=== PATIENT | female | born 1945 | race Caucasian/White ===

== ENCOUNTER 2020-10-02 13:18 | Emergency (ER) | payer MEDICARE, BC ==
[~2020-10-02] VITALS: Ht 165.1 cm; Wt 84.9 kg
[~2020-10-02 13:18] MED LIST: ACET-1008 PO; ASCO-261 PO; CALC-336 PO; CALC-793 PO; CRAN200C PO; LEVO137T24 PO; LIDOcaine 1% W/epiNEPHrine 1:200,000 10ml vial ONE; MAGN500C16 PO; MULT-227 PO; SPIR1TAB4 PO
[2020-10-02 13:38] VITALS: BP 172/76
[2020-10-02] MEDS ORDERED: TETanus/Pertussis (Acell)/Diphther VAC/PF (Tdap-Adult) 0.5ml syringe IMVAC ONE (14:15)
--- NOTE | 2020-10-02 15:25 | NUR ---
CALL (LILY), WHEN READY FOR DISCHARGE SO HE CAN PICK UP. #[phone]
== END 2020-10-02 16:26 | disposition home or self-care (01) ==
LOC: ER 13:19
DX: S01.21XA Laceration without foreign body of nose, initial encounter (principal); M25.561 Pain in right knee; I10 Essential (primary) hypertension; Z88.2 Allergy status to sulfonamides; Z88.8 Allergy status to other drugs, medicaments and biological substances; Z79.899 Other long term (current) drug therapy; Z91.018 Allergy to other foods; W22.8XXA Striking against or struck by other objects, initial encounter; Y93.89 Activity, other specified; Y92.89 Other specified places as the place of occurrence of the external cause; Y99.8 Other external cause status
CPT/HCPCS: 12011; 70150; 70450; 90471; 90715; 99284

== ENCOUNTER 2023-08-13 09:53 | Day surgery (SDC) | payer MEDICARE, BC ==
[2023-08-05 16:22] LABS: BASOPHILS # (AUTO) 0.1 X10'3 (0-0.2); EOSINOPHILS # (AUTO) 0.2 X10'3 (0-0.9); EOSINOPHILS % (AUTO) 2.2 % (0-6); LYMPHOCYTES # (AUTO) 2.3 X10'3 (1.1-4.8); LYMPHOCYTES % (AUTO) 30.3 % (21-51); MEAN CORPUSCULAR HEMOGLOBIN 30.5 PG (27.0-31.0); MEAN CORPUSCULAR HGB CONC 33.5 g/dL (33.0-36.5); MEAN CORPUSCULAR VOLUME 91.2 FL (78-98); MEAN PLATELET VOLUME 9.2 FL (7.4-10.4); MONOCYTES # (AUTO) 0.5 X10'3 (0-0.9); NEUTROPHILS # (AUTO) 4.6 X10'3 (1.8-7.7); NEUTROPHILS % (AUTO) 59.5 % (42-75); PRE OP HEMATOCRIT 43.3 % (35.0-45.0); PRE OP HEMOGLOBIN 14.5 g/dL (12.0-16.0); PRE OP PLATELET COUNT 210 X10'3 (140-440); PRE OP WHITE BLOOD COUNT 7.7 10'3 (4.8-10.8); RED BLOOD COUNT 4.75 X10'6 (4.20-5.60); RED CELL DISTRIBUTION WIDTH 14.2 % (11.5-14.5)
[2023-08-05 16:35] LABS: ALBUMIN 3.6 G/DL (3.4-5.0); ALKALINE PHOSPHATASE 156 IU/L (46-116); BLOOD UREA NITROGEN 15 MG/DL (7-18); CALCIUM 9.1 MG/DL (8.5-10.1); CHLORIDE 103 MMOL/L (99-107); CREATININE 0.75 MG/DL (0.40-0.90); PRE OP ALT 53 U/L (30-65); PRE OP ANION GAP 5 (8-16); PRE OP AST 21 U/L (10-37); PRE OP BILIRUB, TOTAL 0.6 MG/DL (0.0-1.0); PRE OP GLUCOSE 161 MG/DL (70-104); PRE OP SODIUM 137 MMOL/L (135-145); TOTAL CARBON DIOXIDE 28.7 MMOL/L (24-32); TOTAL PROTEIN 7.1 G/DL (6.4-8.2); eGFR 75 ML/MIN
[2023-08-05 16:37] LABS: PRE OP POTASSIUM 3.2 MMOL/L (3.4-5.1)
[~2023-08-13] VITALS: Ht 165.1 cm; Wt 77.0 kg
[2023-08-13] VITALS (13 sets, daily range): BP systolic 106–137; BP diastolic 56–73; PULSE 55–60; RESP 8–19; TEMP 97.1; O2SAT 95–100
[~2023-08-13 09:53] MED LIST changes: -ACET-1008 PO; +ATOR40TA72 PO; +COQ10; +DHEA; +DOCUMENT DATE & TIME OF BETA-BLOCKER PO ONE; +LEVO100T PO; +LEVO112T52 PO; -LEVO137T24 PO; -LIDOcaine 1% W/epiNEPHrine 1:200,000 10ml vial ONE; -MAGN500C16 PO; +MAGN500C4 PO; +OMEG100037 PO; +PQQ; +SOTA80TA73 PO; +TURMERIC; +VIT B; +[UNRECOGNIZED DRUG - OTHER]; +cefazolin 2gm/D5W 100mL 100 ML IV ONE; +famotidine 20mg tablet PO ONE; +ringers solution, lacted 1,000 ML IV SCH
[2023-08-13] MEDS ORDERED: morphine 2 MG/ML inj. syringe IV PRN (12:20)
[2023-08-13] MEDS ORDERED: ondansetron/PF 4mg/2ml inj IV PRN (12:20)
[2023-08-13] MEDS ORDERED: labetalol 20mg/4ml (5mg/ml) syringe IV PRN (12:20)
[2023-08-13] MEDS ORDERED: ringers solution, lacted 1,000 ML IV SCH (12:20)
[2023-08-13] MEDS ORDERED: hydrALAZINE 20mg/ml inj. IV PRN (12:20)
[2023-08-13] MEDS ORDERED: fentaNYL/PF 50MCG/1 ML 2ML syringe IV PRN ×2 (12:20)
[2023-08-13] MEDS ORDERED: morphine 4 MG/ML inj SYRINge IV PRN (12:20)
[2023-08-13] MEDS ORDERED: sevoflurane 250ml liquid IH ONE (12:25)
[2023-08-13] MEDS ORDERED: fentaNYL/PF 50MCG/1 ML 2ML syringe ONE (12:27)
[2023-08-13] MEDS ORDERED: midazolam 1 mg/ML 2ml injection ONE (12:28)
[2023-08-13] MEDS ORDERED: dexamethasone sod phosphate 4mg/ml inj. ONE (12:41)
[2023-08-13] MEDS ORDERED: ondansetron/PF 4mg/2ml inj ONE (12:42)
[2023-08-13] MEDS ORDERED: propofol inj 20 ML IV ONE (12:42)
[2023-08-13] MEDS ORDERED: LIDOcaine 2% (20mg/ml) 5ml vial ONE (12:42)
[2023-08-13] MEDS ORDERED: ePHEDrine 50MG/ML INJ. ONE (12:42)
[2023-08-13] MEDS ORDERED: acetaminophen 1,000mg/100ml IV 100 ML IV ONE (12:43)
[2023-08-13] MEDS ORDERED: BUPIVAcaine 0.25% w/Epi /PF 30ml vial IJ ONE (13:16)
[2023-08-13] MEDS ORDERED: naloxone 0.4 mg/ml inj ONE (13:17)
--- NOTE | 2023-08-13 13:22 | NUR ---
Received from OR via [facility] TO RR 6, accompanied by Anesthesiologist DR IBARRA and report given by Anesthesiolgist. PT PRESENTS WITH PIV 20G RIGHT HAND, SPO2 100% 6L MASK, LR RUNNING AT 100MLS/HR, BREAST BINDER CDI, VSS. Addendum: 08/13/23 at 1336 by Deirdre Hernandez RN, RN Amended: Links added.
--- NOTE | 2023-08-13 15:22 | NUR ---
PT HAS MET D/C CRITERIA. IV D/C'D. VSS. DRESSING BREAST BINDER C/D/I. I HAVE REVIEWED D/C INSTRUCTIONS WITH PATIENT AND SHE HAS VERBALIZED UNDERSTANDING OF INSTRUCTIONS. ALL QUESTIONS, COMMENTS, AND CONCERNS WERE ANSWERED AT THIS TIME. PT WAS ABLE TO GET DRESSED WITH ASSISTANCE AND AMBULATED TO W/C WITH STANDBY ASSIST. PT WAS WHEELED OUT TO PRIVATE VEHICLE AND TRANSFERRED INTO VEHICLE WITHOUT INCIDENT. PATIENT D/C HOME WITH ALL BELONGINGS. Addendum: 08/13/23 at 1532 by Deirdre Hernandez RN, RN Amended: Links added.
== END 2023-08-13 15:22 | disposition home or self-care (01) ==
LOC: PAS 09:53
PROVIDERS: ATTEND Surgery
DX: C50.211 Malignant neoplasm of upper-inner quadrant of right female breast (principal); E89.0 Postprocedural hypothyroidism; Z87.891 Personal history of nicotine dependence; Z79.890 Hormone replacement therapy; Z79.891 Long term (current) use of opiate analgesic; Z79.899 Other long term (current) drug therapy; Z90.710 Acquired absence of both cervix and uterus; Z96.651 Presence of right artificial knee joint; Z96.641 Presence of right artificial hip joint; Z98.890 Other specified postprocedural states; Z88.2 Allergy status to sulfonamides; Z88.5 Allergy status to narcotic agent; Z88.8 Allergy status to other drugs, medicaments and biological substances
CPT/HCPCS: 19301; 36415; 76098; 80053; 82948; 85025; J0131; J0690; J1100; J2250; J2310; J2405; J2704; J3010; J3490; J7030; J7120; S0020; Z7506; Z7512; A4215; A4618; A6449; A7000